=== PATIENT | female | born 1955 | race Hispanic/Latino ===

== ENCOUNTER 2022-05-21 23:45 | Emergency (ER) | payer MEDICARE ==
[~2022-05-21] VITALS: Ht 152.4 cm; Wt 57.6 kg
[2022-05-22] MEDS ORDERED: HYDROCODON-ACE1 EA11 PO (04:26)
[2022-05-22 06:42] VITALS: BP 113/68
== END 2022-05-22 04:42 | disposition home or self-care (01) ==
LOC: ER 23:49
DX: S82.091A Other fracture of right patella, initial encounter for closed fracture (principal); S60.222A Contusion of left hand, initial encounter; M25.532 Pain in left wrist; W17.89XA Other fall from one level to another, initial encounter; Y93.89 Activity, other specified; Y92.89 Other specified places as the place of occurrence of the external cause; I10 Essential (primary) hypertension; E11.9 Type 2 diabetes mellitus without complications; E78.5 Hyperlipidemia, unspecified
CPT/HCPCS: 99283